=== PATIENT | female | born 1970 | race African-American/Black ===

== ENCOUNTER 2016-06-22 14:08 | Emergency (ER) | payer SELFPAY ==
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
== END 2016-06-22 15:25 | disposition home or self-care (01) ==
LOC: ER 14:08
DX: J30.2 Other seasonal allergic rhinitis (principal)

== ENCOUNTER 2016-11-30 11:21 | Emergency (ER) | payer OTHER ==
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
== END 2016-11-30 16:08 | disposition home or self-care (01) ==
LOC: ER 11:21
DX: T76.21XA Adult sexual abuse, suspected, initial encounter (principal); F17.210 Nicotine dependence, cigarettes, uncomplicated; Z98.890 Other specified postprocedural states